=== PATIENT | female | born 1980 ===

== ENCOUNTER 2018-08-25 02:43 | Emergency (ER) | payer OTHER ==
--- NOTE | 2018-08-25 03:51 | XRay Report ---
FINAL REPORT PROCEDURE: XR KNEE 3V RT TECHNIQUE: RIGHT knee radiographs, AP, lateral and oblique views. CPT 64470 HISTORY: fall with pain and feeling pop COMPARISON: No prior studies are available for comparison. FINDINGS: Fracture (s) and/or Dislocation(s): None . Alignment: Normal . Joint space(s): Normal . Soft tissues: Normal . Bone mineralization: Normal . Foreign bodies: None . IMPRESSION: Normal Examination.
--- NOTE | 2018-08-25 04:59 | Emergency Department Report ---
ED Lower Extremity HPI - General Chief Complaint: Extremity Injury, Lower Stated Complaint: RT KNEE PAIN Time Seen by Provider: 08/25/18 04:36 Source: patient Mode of arrival: Wheelchair Limitations: No Limitations - History of Present Illness Initial Comments: 38-year-old obese female presents to the emergency department complaining of right knee pain which started after she accidentally stepped into a concrete pole. Patient states that she stepped into the concrete pole. She felt like her knee twisted to the side and popped out of place and then relocated since the time of injury to been experiencing pain with standing and range of motion. Complaint: knee injury -: hour(s) (2) Injury: Knee: Right Type of Injury: eversion Place: other Severity: mild Improves With: nothing Worsens With: nothing Context: other Associated Symptoms: unable to bear weight - Related Data Previous Rx's Medication Instructions Recorded Last Taken Type Ketorolac [Toradol] 10 mg PO Q6H PRN #20 tablet 08/25/18 Unknown Rx Allergies Allergy/AdvReac Type Severity Reaction Status Date / Time No Known Allergies Allergy Verified 08/25/18 03:04 ED Review of Systems ROS: Stated complaint: RT KNEE PAIN Other details as noted in HPI Constitutional: denies: chills, fever Eyes: denies: eye pain, eye discharge, vision change ENT: denies: ear pain, throat pain Respiratory: denies: cough, shortness of breath, wheezing Cardiovascular: denies: chest pain, palpitations Endocrine: no symptoms reported Gastrointestinal: denies: abdominal pain, nausea, diarrhea Genitourinary: denies: urgency, dysuria, discharge Musculoskeletal: joint swelling. denies: back pain, arthralgia Skin: denies: rash, lesions Neurological: denies: headache, weakness, paresthesias Psychiatric: denies: anxiety, depression Hematological/Lymphatic: denies: easy bleeding, easy bruising ED Past Medical Hx - Past Medical History Previous Medical History?: No - Surgical History Past Surgical History?: Yes Hx Cholecystectomy: Yes Additional Surgical History: tubal ligation. wisdom teeth - Social History Smoking Status: Current Every Day Smoker Substance Use Type: None - Medications Home Medications: Home Medications Medication Instructions Recorded Confirmed Last Taken Type Ketorolac [Toradol] 10 mg PO Q6H PRN #20 tablet 08/25/18 Unknown Rx ED Physical Exam - General Limitations: No Limitations General appearance: alert, in no apparent distress - Head Head exam: Present: atraumatic, normocephalic - Eye Eye exam: Present: normal appearance, PERRL, EOMI Pupils: Present: normal accommodation - ENT ENT exam: Present: mucous membranes moist - Neck Neck exam: Present: normal inspection - Respiratory Respiratory exam: Present: normal lung sounds bilaterally. Absent: respiratory distress - Cardiovascular Cardiovascular Exam: Present: regular rate, normal rhythm. Absent: systolic murmur, diastolic murmur, rubs, gallop - GI/Abdominal GI/Abdominal exam: Present: soft, normal bowel sounds - Extremities Exam Extremities exam: Present: normal inspection, tenderness, normal capillary refill, joint swelling. Absent: pedal edema, calf tenderness - Back Exam Back exam: Present: normal inspection. Absent: CVA tenderness (R), CVA tenderness (L), muscle spasm, paraspinal tenderness - Neurological Exam Neurological exam: Present: alert, oriented X3, CN II-XII intact, normal gait - Psychiatric Psychiatric exam: Present: normal affect, normal mood. Absent: anxious, flat affect, manic - Skin Skin exam: Present: warm, dry, intact, normal color. Absent: rash ED Course Vital Signs 08/25/18 02:59 Temperature 99.3 F Pulse Rate 117 H Respiratory 18 Rate Blood Pressure 125/79 O2 Sat by Pulse 97 Oximetry ED Lower Extremity MDM - Medical Decision Making Discussed the findings with the patient also her current employment, which is within the [employer] department have no work 12-16 hours on a daily basis and standing the minute nearly the entire time. Clinically the patient a note for for the next 48 hours she can follow the primary care provider. O told to reevaluate her duty limitations. Patient caught rate is elevated. I do believe this is secondary to the pain. Plan is to treat the pain reevaluate her vital signs Critical care attestation.: If time is entered above; I have spent that time in minutes in the direct care of this critically ill patient, excluding procedure time. ED Disposition Clinical Impression: Strain of knee and leg, right Disposition: [id number] TO HOME OR SELFCARE Is pt being admited?: No Does the pt Need Aspirin: No Condition: Stable Instructions: Knee Pain (ED) Referrals: SALMA MORENO MD [Primary Care Provider] - 3-5 Days RAJ GARCIA MD [Staff Physician] - 2-3 Days Forms: Work/School Release Form(ED)
[2018-08-25 05:15] VITALS: BP 120/78
[2018-08-25] MEDS ORDERED: NORCO 5/325 PO ONE (05:24)
[2018-08-25] MEDS ORDERED: NORCO 5/325 ONE (05:24)
== END 2018-08-25 06:33 | disposition home or self-care (01) ==
LOC: ED 02:43
DX: S86.912A Strain of unspecified muscle(s) and tendon(s) at lower leg level, left leg, initial encounter (principal); F17.200 Nicotine dependence, unspecified, uncomplicated; Z98.51 Tubal ligation status; Z90.49 Acquired absence of other specified parts of digestive tract; W22.8XXA Striking against or struck by other objects, initial encounter; Y93.89 Activity, other specified; Y99.8 Other external cause status; Y92.89 Other specified places as the place of occurrence of the external cause